=== PATIENT | male | born 1970 | race Caucasian/White ===

== ENCOUNTER 2022-07-28 13:54 | Emergency (ER) | payer OTHER, SELFPAY ==
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
[2022-07-28 13:56] VITALS: BP 156/101; BP 182/98; PULSE 89; PULSE 93; RESP 16; O2SAT 95; O2SAT 98; BMI 23.0
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
[2022-07-28] MEDS: Acetaminophen 325 MG TABLET 975 MG PO (16:11)
== END 2022-07-28 18:40 | disposition home or self-care (01) ==
PROVIDERS: Emergency Provider Emergency Medicine; PCP Internal Medicine
DX: S13.4XXA Sprain of ligaments of cervical spine, initial encounter (principal); M54.2 Cervicalgia; R51.9 Headache, unspecified; M79.641 Pain in right hand; V43.52XA Car driver injured in collision with other type car in traffic accident, initial encounter; Y93.9 Activity, unspecified; Y92.410 Unspecified street and highway as the place of occurrence of the external cause; Y99.9 Unspecified external cause status; Z79.899 Other long term (current) drug therapy
CPT/HCPCS: 70450; 72125; 73130; 99283; 99284

== ENCOUNTER 2022-09-14 15:00 | Outpatient (RCR) | payer OTHER, SELFPAY ==
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
== END 2022-11-10 08:26 | disposition home or self-care (01) ==
LOC: HO.PTCHIC 15:00
PROVIDERS: PCP Internal Medicine; Visit Provider Internal Medicine
DX: M25.512 Pain in left shoulder (principal)
CPT/HCPCS: 97110; 97161

== ENCOUNTER 2023-07-26 10:04 | Outpatient (REF) | payer OTHER, SELFPAY ==
[2023-07-26 13:20] LABS: Basophils Absolute Auto 0.1 X10*3/uL (0.0-0.2); Basophils Percent Auto 0.9 % (0-2); Eosinophils Absolute Auto 0.1 X10*3/uL (0.0-0.4); Eosinophils Percent Auto 1.1 % (0-4); Hematocrit 29.4 % (42.0-52.0); Hemoglobin 10.1 g/dl (14.0-18.0); Imm Gran Abs Auto 0.03 X10*3/uL (0.00-0.03); Imm Gran Pct Auto 0.6 % (0.0-0.4); Lymphocytes Absolute Auto 1.4 X10*3/uL (1.2-4.9); MANUAL DIFF FLAG SCAN; Mean Corpuscular HGB Conc 34.4 g/dl (31.0-36.0); Mean Corpuscular Hemoglobin 35.7 pg (27.0-33.0); Mean Corpuscular Volume 103.9 fL (80.0-98.0); Mean Platelet Volume 10.6 fL (9.4-12.4); Monocytes Absolute Auto 1.1 X10*3/uL (0.1-1.2); Monocytes Percent Auto 20.4 % (2-11); Neutrophils Absolute Auto 2.8 x10*3/uL (2.0-8.3); Platelet Count 295 X10*3/uL (160-400); Red Blood Count 2.83 X10*6/uL (4.60-5.80); Red Cell Distribution Width 14.6 % (11.0-16.0); SCAN SMEAR FLAG 1; White Blood Count 5.4 X10*3/uL (4.8-10.8)
[2023-07-26 13:42] LABS: SLIDE REVIEW VERIFIED
[2023-07-26 13:57] LABS: Alanine Aminotransferase 36 U/L (0-40); Albumin Level 4.3 g/dL (3.5-5.0); Alkaline Phosphatase 95 U/L (39-117); Anion Gap 12 (12-20); Aspartate Amino Transferase 34 U/L (5-37); Bilirubin Total 0.3 mg/dL (0.0-1.0); Blood Urea Nitrogen 8 mg/dL (9-16); Calcium 10.3 mg/dL (8.4-10.2); Carbon Dioxide 26 mmol/L (22-29); Chloride 101 mmol/L (96-108); Estimated Glomerular Filt Rate > 60; Glucose Random 97 mg/dL (60-115); Magnesium 1.9 mg/dL (1.6-2.6); Potassium 4.3 mmol/L (3.3-5.1); Sodium 135 mmol/L (135-145); Total Protein 7.1 g/dL (6.5-8.0)
[2023-07-26 14:20] LABS: Vitamin B12 581 pg/mL (200-900)
== END 2023-07-26 10:05 | disposition home or self-care (01) ==
LOC: HO.10HDL 10:04
PROVIDERS: Visit Provider Internal Medicine
DX: D64.9 Anemia, unspecified (principal); E83.42 Hypomagnesemia; E87.1 Hypo-osmolality and hyponatremia
CPT/HCPCS: 36415; 80053; 82550; 82607; 83735; 85025